=== PATIENT | female | born 1960 | race Caucasian/White ===

== ENCOUNTER 2018-01-02 15:29 | Emergency (ER) | payer BC ==
[~2018-01-02] VITALS: Ht 167.6 cm; Wt 63.5 kg
[2018-01-02] MEDS ORDERED: Acetaminophen 500mg (ES) tab ORAL ONE (16:00)
--- NOTE | 2018-01-02 16:12 | Emergency Room Report ---
History of Present Illness General Chief Complaint: Lower Extremity Injury Source: Patient Present Illness HPI 57 yo female patient presents to ER complaining of left ankle s/p injury 2 hours ago. Reports hiking and twisting her ankle. Reports pain with ambulation, presents to ER with crutches. Reports swelling of ankle, pain on medial and lateral side. Denies hitting her head, LOC, dizziness. Denies chest pain, SOB, fever. Allergies: Coded Allergies: No Known Allergies (Unverified , 01/02/18) Patient History Past Medical History: see triage record Reviewed Nursing Documentation: PMH: Agreed; PSxH: Agreed Nursing Documentation-PM Past Medical History: No Stated History Hx Neurological Problems: Yes - hypothyroid, veritgo, insominia Review of Systems All Other Systems: negative except mentioned in HPI Physical Exam Vital Signs Date Time Temp Pulse Resp B/P (MAP) Pulse Ox O2 Delivery O2 Flow Rate FiO2 01/02/18 15:42 98.2 82 18 131/68 95 Room Air 98.2 Sp02 EP Interpretation: reviewed, normal General Appearance: well appearing, no apparent distress, alert, GCS 15, non- toxic Head: normocephalic, atraumatic Eyes: bilateral eye normal inspection, bilateral eye PERRL ENT: hearing grossly normal, normal pharynx, no angioedema, normal voice, uvula midline, moist mucus membranes Neck: full range of motion Respiratory: lungs clear, normal breath sounds, no rhonchi, no respiratory distress, no accessory muscle use, no wheezing, speaking full sentences Cardiovascular #1: regular rate, rhythm, no edema Cardiovascular #2: 2+ dorsalis pedis (R), 2+ dorsalis pedis (L) Musculoskeletal: back normal, digits/nails normal, normal range of motion - able to wiggle toes, no calf tenderness, decreased range of motion - secondary to pain, swelling, other - NVI, negative syndesmotic squeeze test, able to wiggle toes, tender - left ankle malleolus Neurologic: alert, oriented x3, responsive, motor strength/tone normal, sensory intact Psychiatric: mood/affect normal Skin: no rash Lymphatic: no adenopathy Medical Decision Making PA Attestation Dr. Cunningham is my supervising Physician whom patient management has been discussed with. Diagnostic Impression: Primary Impression: Ankle sprain ER Course Pt. presents to the ED c/o left ankle pain. Ddx considered but are not limited to fracture, sprain, strain, contusion. Vital signs: are WNL, pt. is afebrile Ordered X-ray and pain medication. ER COURSE An X-ray of the left ankle was ordered, results show no fracture, soft tissue swelling, per the preliminary reading. Results reviewed with Dr. Cunningham, agrees with findings. Medication provided in ED for pain. Air splint applied and was checked afterwards by me showing good alignment and support with distal neurovascular functioning intact. Patient has crutches, does not need crutches provided in ER. RICE method. F/u with primary care DISCHARGE: -Rx provided for Tylenol for pain symptoms. At this time pt. is stable for d/c to home. Patient is resting comfortably, in no acute distress, nontoxic appearing, talking without difficulty. Will provide printed patient care instructions, and any necessary prescriptions. Patient instructed to follow with primary care provider in 3 - 5 days and to request further orthopedic follow-up. Care plan and follow up instructions have been discussed with the patient prior to discharge. Patient instructed on RICE method: rest, ice, compression, elevation. Patient instructed to WBAT. Take medications as directed. Patient questions asked and answered. Patient reports understanding and agreement to treatment plan. ER precautions given, patient instructed to return to ER immediately for any new or worsening of symptoms. Other X-Ray Diagnostic Results Other X-Ray Diagnostic Results : X-Ray ordered: left ankle # of Views/Limited Vs Complete: 3 View Indication: Pain EP Interpretation: Yes PA Xray: Interpretation reviewed, by supervising MD, and agrees with findings. Interpretation: no dislocation, no fractures, other - soft tissue swelling Impression: Other PA Scribe Text Quinn Brar PA-C Last Vital Signs Date Time Temp Pulse Resp B/P (MAP) Pulse Ox O2 Delivery O2 Flow Rate FiO2 01/02/18 15:42 98.2 82 18 131/68 95 Room Air 98.2 Disposition: HOME, SELF-CARE Condition: Stable Scripts Acetaminophen* (TYLENOL EXTRA STRENGTH*) 500 Mg Tablet 500 MG ORAL Q8H PRN for Prn Headache/Temp > 101, #30 TAB 0 Refills Prov: Leroy Brar 01/02/18 Patient Instructions: Ankle Sprain Additional Instructions: Patient instructed to follow up with primary care provider and discuss further referral to orthopedics. Patient instructed on RICE method: rest, ice, compression, elevation. Patient instructed to WBAT. Take medications as directed. Patient questions asked and answered. ER precautions given, patient instructed to return to ER immediately for any new or worsening of symptoms. Leroy Brar Jan 02, 2018 16:12
[2018-01-02] MEDS ORDERED: Bacitracin Oint UD TOPIC ONE (16:30)
[2018-01-02] MEDS ORDERED: TYLENOL EXTRA500 MG ORAL (16:53)
[2018-01-02 17:13] VITALS: BP 131/68
--- NOTE | 2018-01-03 17:14 | Diagnostic Imaging Report ---
Indication: Reason For Exam: PAIN Technique: XRAY Ankle Compl Min 3v L Comparison: None. Findings: The ankle is intact. No fracture. No evidence of bone destruction. There is lateral soft tissue swelling. There is a plantar calcaneal enthesophyte. Impression: Soft tissue swelling laterally. Plantar calcaneal enthesophyte. Otherwise negative.
== END 2018-01-02 17:13 | disposition home or self-care (01) ==
LOC: EMR 17:00 → EDUNIT# 17:00 → EMR 17:13
DX: S93.402A Sprain of unspecified ligament of left ankle, initial encounter (principal); X50.1XXA Overexertion from prolonged static or awkward postures, initial encounter; Y93.01 Activity, walking, marching and hiking; Y92.9 Unspecified place or not applicable; E03.9 Hypothyroidism, unspecified
CPT/HCPCS: 99283

== ENCOUNTER 2018-01-08 03:58 | Emergency (ER) | payer BC ==
[~2018-01-08] VITALS: Ht 167.6 cm; Wt 64.0 kg
[~2018-01-08 03:58] MED LIST: TYLENOL EXTRA500 MG ORAL
[2018-01-08] MEDS ORDERED: LOESTRIN1 EAC1 PO (04:12)
--- NOTE | 2018-01-08 04:21 | Emergency Room Report ---
History of Present Illness General Chief Complaint: General Complaint Source: Patient Present Illness HPI 57-year-old female, one day ago ago had a urinary sling procedure performed at [facility]. Prior to discharge she could not urinate which she was told was normal after this procedure, so she was discharged with a Devine. ML the night she told the Devine now she is in pain. Her surgeon told her that she can remove the Devine herself, but states that she wants to go to the emergency room to have it removed. No hematuria. No other complaints Allergies: Coded Allergies: No Known Allergies (Unverified , 01/02/18) Patient History Past Medical History: see triage record Past Surgical History: none Pertinent Family History: none Now: No Reviewed Nursing Documentation: PMH: Agreed; PSxH: Agreed Nursing Documentation-PMH Past Medical History: No Stated History Hx Neurological Problems: Yes - hypothyroid, veritgo, insominia Review of Systems All Other Systems: negative except mentioned in HPI Physical Exam Vital Signs Date Time Temp Pulse Resp B/P (MAP) Pulse Ox O2 Delivery O2 Flow Rate FiO2 01/08/18 04:08 98.0 92 14 127/76 97 Room Air 98.1 Sp02 EP Interpretation: reviewed, normal General Appearance: alert, GCS 15, non-toxic, mild distress Head: normocephalic, atraumatic Eyes: bilateral eye normal inspection, bilateral eye PERRL, bilateral eye EOMI ENT: normal ENT inspection, normal pharynx, normal voice, moist mucus membranes Neck: normal inspection, full range of motion, supple Respiratory: normal inspection, lungs clear, normal breath sounds, no respiratory distress, no retraction, no wheezing, speaking full sentences, chest symmetrical Cardiovascular #1: normal inspection, regular rate, rhythm, no edema, normal capillary refill Cardiovascular #2: 2+ radial (R), 2+ radial (L) Gastrointestinal: normal inspection, non tender, soft, non-distended, no guarding, other - Suprapubic region with tenderness after procedure, well- healing sutures, Devine in place Musculoskeletal: normal inspection, back normal, normal range of motion, non- tender Neurologic: normal inspection, alert, oriented x3, responsive, motor strength/ tone normal, sensory intact, normal gait, speech normal Psychiatric: normal inspection, judgement/insight normal, memory normal Skin: normal inspection, normal color, no rash, warm/dry, well hydrated, normal turgor Medical Decision Making Diagnostic Impression: Primary Impression: Encounter for Devine catheter removal ER Course 57-year-old female with wanting Devine removed DDX: Devine removal Plan: Remove Devine ER course: Patient has remained stable during ED stay. Devine was removed without complications, she will follow up with her doctor in the morning Disposition: Patient is to be discharged to home. Please note that this Emergency Department Report was dictated using [employer] launderer technology software, occasionally this can lead to erroneous entry secondary to interpretation by the dictation equipment Last Vital Signs Date Time Temp Pulse Resp B/P (MAP) Pulse Ox O2 Delivery O2 Flow Rate FiO2 01/08/18 04:08 98.0 92 14 127/76 97 Room Air 98.1 Disposition: HOME, SELF-CARE Condition: Improved Additional Instructions: You have been seen to remove your Devine catheter Please follow-up with your doctor in the morning Please return to the emergency room if he continued to have severe pain, inability to urinate Janelle Mac M.D. Jan 08, 2018 04:21
[2018-01-08 04:23] VITALS: BP 127/76
== END 2018-01-08 05:35 | disposition home or self-care (01) ==
LOC: EMR 04:19
DX: T83.84XA Pain due to genitourinary prosthetic devices, implants and grafts, initial encounter (principal); E03.9 Hypothyroidism, unspecified; G47.00 Insomnia, unspecified; Y84.6 Urinary catheterization as the cause of abnormal reaction of the patient, or of later complication, without mention of misadventure at the time of the procedure; Y92.9 Unspecified place or not applicable
CPT/HCPCS: 99282